=== PATIENT | female | born 1980 | race Asian ===

== ENCOUNTER 2022-11-25 12:03 | Outpatient (CLI) | payer OTHER ==
--- NOTE | 2022-11-25 16:17 | XRAY Report ---
PROCEDURE: Hip w/Pelvis 1V LT INDICATIONS: SPRAIN OF KNEE TECHNIQUE: AP pelvis with lateral view(s) of the left hip(s). COMPARISON: None. FINDINGS: Bones: No fractures or dislocations. No suspicious bony lesions. Soft tissues: No suspicious soft tissue calcifications or masses. IMPRESSION: No acute bony abnormality. If there remains a high clinical concern for fracture, consider cross-sect ional imaging now. If pain persists, consider repeat x-ray in 10-14 days or cross-sectional imaging. Reviewed by: Benjamín Luu MD on 11/25/2022 4:16 PM PDT Approved by: Benjamín Luu MD on 11/25/2022 4:16 PM PDT Station ID: [id number]
--- NOTE | 2022-11-25 16:17 | XRAY Report ---
PROCEDURE: Knee 3 View LT INDICATIONS: SPRAIN OF KNEE TECHNIQUE: 3 views of the left knee(s) were acquired. COMPARISON: None. FINDINGS: Bones: No fractures or dislocations. No suspicious bony lesions. Soft tissues: No knee joint effusion. No suspicious soft tissue calcifications or masses. IMPRESSION: No acute bony abnormality. If there remains a high clinical concern for fracture, consider cross-sect ional imaging now. If pain persists, consider repeat x-ray in 10-14 days or cross-sectional imaging. Reviewed by: Benjamín Luu MD on 11/25/2022 4:16 PM PDT Approved by: Benjamín Luu MD on 11/25/2022 4:16 PM PDT Station ID: [id number]
== END 2022-11-25 12:04 | disposition home or self-care (01) ==
LOC: DI.N 12:03
PROVIDERS: ATTEND Registered Nurse
DX: S83.8X2A Sprain of other specified parts of left knee, initial encounter (principal); S76.012A Strain of muscle, fascia and tendon of left hip, initial encounter

== ENCOUNTER 2023-09-16 17:34 | Outpatient (CLI) | payer OTHER ==
--- NOTE | 2023-09-17 09:01 | XRAY Report ---
PROCEDURE: Hand 1-2V RT INDICATIONS: CONTUSION OF RIGHT HAND TECHNIQUE: 3 views of the hand(s) acquired. COMPARISON: None. FINDINGS: Bones: No fractures or dislocations. No suspicious bony lesions. Soft tissues: No suspicious soft tissue calcifications or masses. IMPRESSION: No acute bony abnormality. Reviewed by: Benjamín Luu MD on 09/17/2023 9:00 AM PDT Approved by: Benjamín Luu MD on 09/17/2023 9:00 AM PDT Station ID: [id number]
== END 2023-09-16 17:35 | disposition home or self-care (01) ==
LOC: DI 17:34
PROVIDERS: ATTEND Nurse Practitioner
DX: S60.221A Contusion of right hand, initial encounter (principal)

== ENCOUNTER 2023-12-09 13:46 | Outpatient (CLI) | payer OTHER ==
[2023-12-09 18:20] LABS: BASOPHILS # (AUTO) 0.1 10^3/uL (0.0-0.1); BASOPHILS % (AUTO) 1.1 %; EOSINOPHILS # (AUTO) 0.2 10^3/uL (0.0-0.7); EOSINOPHILS % (AUTO) 3.7 %; HCT - HEMATOCRIT 37.9 % (37.0-47.0); LYMPHOCYTES # (AUTO) 1.8 10^3/uL (1.5-3.5); LYMPHOCYTES % (AUTO) 32.6 %; MEAN CORPUSCULAR HEMOGLOBIN 29.1 pg (27.0-31.0); MEAN CORPUSCULAR HGB CONC 31.7 g/dL (32.0-36.0); MEAN PLATELET VOLUME 10.1 fL (7.9-10.8); MONOCYTES # (AUTO) 0.4 10^3/uL (0.0-1.0); MONOCYTES % (AUTO) 7.2 %; NEUTROPHILS % (AUTO) 55.2 %; PLT - PLATELET COUNT 287 10^3/uL (130-450); RED BLOOD COUNT 4.12 10^6/uL (4.20-5.40); RED CELL DISTRIBUTION WIDTH 13.5 % (12.0-15.0); WHITE BLOOD COUNT 5.4 x10^3/uL (4.8-10.8)
[2023-12-09 18:26] LABS: THYROID STIMULATING HORMONE 1.73 uIU/mL (0.34-5.60)
== END 2023-12-09 23:59 | disposition home or self-care (01) ==
LOC: LAB 13:46
PROVIDERS: ATTEND Family Medicine
DX: N93.8 Other specified abnormal uterine and vaginal bleeding (principal)
CPT/HCPCS: 36415; 83001; 83002; 84443; 85025

== ENCOUNTER 2023-12-10 17:00 | Emergency (ER) | payer OTHER ==
[2023-12-10 17:50] VITALS: O2SAT 100
[2023-12-10 18:11] LABS: BASOPHILS # (AUTO) 0.1 10^3/uL (0.0-0.1); BASOPHILS % (AUTO) 1.3 %; EOSINOPHILS # (AUTO) 0.3 10^3/uL (0.0-0.7); EOSINOPHILS % (AUTO) 4.4 %; HCT - HEMATOCRIT 39.3 % (37.0-47.0); HGB - HEMOGLOBIN 12.6 g/dL (12.0-16.0); LYMPHOCYTES # (AUTO) 2.1 10^3/uL (1.5-3.5); LYMPHOCYTES % (AUTO) 29.9 %; MEAN CORPUSCULAR HGB CONC 32.1 g/dL (32.0-36.0); MEAN CORPUSCULAR VOLUME 90.6 fL (81.0-99.0); MONOCYTES # (AUTO) 0.4 10^3/uL (0.0-1.0); MONOCYTES % (AUTO) 5.1 %; NEUTROPHILS # (AUTO) 4.2 10^3/uL (1.5-6.6); PLT - PLATELET COUNT 286 10^3/uL (130-450); RED BLOOD COUNT 4.34 10^6/uL (4.20-5.40); RED CELL DISTRIBUTION WIDTH 13.5 % (12.0-15.0); WHITE BLOOD COUNT 7.1 x10^3/uL (4.8-10.8)
[2023-12-10 18:26] LABS: ALBUMIN 4.1 g/dL (3.2-5.5); BILIRUBIN,TOTAL 0.3 mg/dL (0.2-1.0); CALCIUM 9.4 mg/dL (8.5-10.3); CREATININE 0.8 mg/dL (0.6-1.3); TOTAL PROTEIN 6.2 g/dL (6.4-8.9)
[2023-12-10 19:28] LABS: BILIRUBIN,URINE NEGATIVE (NEGATIVE); GLUCOSE, URINE (UA) NEGATIVE (NEGATIVE); KETONES,URINE (UA) NEGATIVE (NEGATIVE); LEUKOCYTE ESTERASE, URINE NEGATIVE (NEGATIVE); NITRITE,URINE NEGATIVE (NEGATIVE); OCCULT BLOOD,URINE LARGE (NEGATIVE); PH,URINE 6.5 PH (5.0-7.5); PROTEIN,URINE NEGATIVE (NEGATIVE); UROBILINOGEN,URINE 0.2 (NORMAL) E.U./dL (NORMAL)
[2023-12-10 19:29] LABS: CLARITY,URINE HAZY (CLEAR); HCG UR QUAL NEGATIVE
[2023-12-10 19:35] LABS: BACTERIA,URINE None Seen /HPF (None Seen); SQUAMOUS EPITHELIAL CELL,UR FEW Squamous (<= Few); WBC,URINE 0-3 /HPF (0-5)
--- NOTE | 2023-12-10 20:20 | Ultrasound Report ---
PROCEDURE: Pelvic w/Transvag+Doppler Comp INDICATIONS: pelvic pain, vag bleeding TECHNIQUE: Real-time scanning was performed of the pelvic organs, with image documentation. Additional endovagi nal scanning was necessary due to incomplete visualization of the adnexal and endometrial structures by transabdominal scanning. Doppler interrogation was performed of the ovaries bilaterally. COMPARISON: None. FINDINGS: Uterus: Uterus is anteverted and normal in size at 7.5 x 4.1 x 4.6 cm. The myometrium is homogeneou s. The endometrium measures 5 mm in combined thickness. Multiple cystic structures seen within the cervix with the largest measuring 1.0 x 1.1 x 1.1 cm, which are favored to represent nabothian cysts. Ovaries: The right ovary measures 2.0 x 1.5 x 1.9 cm, with a calculated ovarian volume of 2.0 cc. T he left ovary measures 2.1 x 1.2 x 1.9 cm, with a calculated ovarian volume of 2.6 cc. Appropriate b lood flow to the ovaries with Doppler interrogation. Less than 12 follicles can be seen in each ova ry. No adnexal masses are seen. No cystic lesions measuring greater than 3 cm. Other: No pathologic free abdominal or pelvic fluid. IMPRESSION: No sonographic evidence of ovarian torsion. Normal sonographic appearance of the uterus and bilateral ovaries. Multiple cervical cystic areas likely represent nabothian cysts. Reviewed by: Frances Chacon MD, PhD on 12/10/2023 8:19 PM PDT Approved by: Frances Chacon MD, PhD on 12/10/2023 8:19 PM PDT Station ID: [id number]
--- NOTE | 2023-12-10 20:44 | ED Physician Documentation ---
History of Present Illness - Stated complaint Stated Complaint: - Chief complaint Chief Complaint: Abd Pain - History obtained from History obtained from: Patient - History of Present Illness Timing: How many days ago (15) Pain level max: 0 Pain level now: 0 - Additonal information Additional information: 43-year-old female presents to the emergency department stating that she has had vaginal bleeding for the past 15 days. She states she did have 1 night where she did not have any bleeding. She states the flow has been similar to prior menses. States her normal menses was about 5 days. Went to the walk-in clinic and is supposed to see gynecology but does not have an appointment till the . She is leaving the country to go to the [facility] and [facility] on December 23. Therefore she came here for evaluation instead. No lightheadedness, dizziness. No chest pain or shortness of breath. Not on anticoagulants. She is not on control or any hormone therapy at home. It does not take any medications. 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 - Present Medications Home Medications: Ambulatory Orders Medication Instructions Recorded Confirmed Norgestimate-Ethinyl Estradiol 1 each PO DAILY #56 tablet 12/10/23 [Sprintec 28 Day Tablet] - Allergies Allergies/Adverse Reactions: Allergies Allergy/AdvReac Type Severity Reaction Status Date / Time No Known Drug Allergies Allergy Verified 12/10/23 19:11 - Social History Does the pt smoke?: Yes Smoking Status: Never smoker Does the pt drink ETOH?: Yes Does the pt have substance abuse?: No PD ED PE NORMAL - Vitals Vital signs reviewed: Yes - General General: Alert and oriented X 3, No acute distress - HEENT HEENT: Moist mucous membranes - Neck Neck: Supple, no meningeal sign - Cardiac Cardiac: RRR, Strong equal pulses - Respiratory Respiratory: No respiratory distress, Clear bilaterally - Abdomen Abdomen: Soft, Non tender, Non distended - Derm Derm: Warm and dry - Neuro Neuro: Alert and oriented X 3 Results - Vitals Vitals: Vital Signs - 24 hr 12/10/23 12/10/23 17:39 21:07 Temperature 36.4 C L Heart Rate 67 76 Respiratory 18 13 Rate Blood Pressure 109/65 116/77 O2 Saturation 100 100 Oxygen O2 Source Room air - Labs Labs: Laboratory Tests 12/10/23 12/10/23 12/10/23 17:13 18:07 18:07 WBC 7.1 RBC 4.34 Hgb 12.6 Hct 39.3 MCV 90.6 MCH 29.0 MCHC 32.1 RDW 13.5 Plt Count 286 MPV 9.0 Neut # (Auto) 4.2 Lymph # (Auto) 2.1 Cochran # (Auto) 0.4 Eos # (Auto) 0.3 Baso # (Auto) 0.1 Absolute Nucleated RBC 0.00 Nucleated RBC % 0.0 Sodium 137 Potassium 4.0 Chloride 102 Carbon Dioxide 31 Anion Gap 4.0 L BUN 14 Creatinine 0.8 Estimated GFR (MDRD) 79 L Glucose 123 H Calcium 9.4 Total Bilirubin 0.3 AST 17 ALT 18 Alkaline Phosphatase 39 L Total Protein 6.2 L Albumin 4.1 Globulin 2.1 Albumin/Globulin Ratio 2.0 Lipase 26 Urine Color LIGHT YELLOW Urine Clarity HAZY Urine pH 6.5 Ur Specific [place] <=1.005 Urine Protein NEGATIVE Urine Glucose (UA) NEGATIVE Urine Ketones NEGATIVE Urine Occult Blood LARGE H Urine Nitrite NEGATIVE Urine Bilirubin NEGATIVE Urine Urobilinogen 0.2 (NORMAL) Ur Leukocyte Esterase NEGATIVE Urine RBC 11-25 H Urine WBC 0-3 Ur Squamous Epith Cells FEW Squamous Urine Bacteria None Seen Ur Microscopic Review INDICATED Urine Culture Comments NOT INDICATED Urine HCG, Qual NEGATIVE - Rads (name of study) pelvic US Relevant Findings:: Final report received, See rad report PD Medical Decision Making - ED course Complexity details: reviewed results, re-evaluated patient, considered differential, d/w patient, d/w family ED course: No acute abnormality on ultrasound, does have nabothian cysts. No significant lab abnormalities. No anemia. No tachycardia. Patient does have dysfunctional uterine bleeding. She states that she would like to try on hormonal control. We will place her on a Sprintec taper. We will have her continue the medication as long as she is out of the country and encouraged her to have close gynecology follow-up upon return. Patient is well-appearing, nontoxic. Afebrile. Patient counseled regarding signs and symptoms for which I believe and urgent re-evaluation would be necessary. Patient with good understanding of and agreement to plan and is comfortable going home at this time This document was made in part using voice recognition software. While efforts are made to proofread this document, sound alike and grammatical errors may occur. Departure - Departure Disposition: Home, Self Care Clinical Impression: Dysfunctional uterine bleeding Condition: Good Instructions: ED Bleed Irregular Vaginal Follow-Up: [facility] [Provider Group] Prescriptions: Norgestimate-Ethinyl Estradiol [Sprintec 28 Day Tablet] 1 each PO DAILY #56 tablet Comments: Your prescription was sent to [facility] in [place]. Please follow-up with your doctor for further care. You will start with 3 pills on day 1, then 2 pills on day 2, then 1 pill daily until you see gynecology. Your ultrasound and lab testing are normal today. Forms: PCP List Discharge Date/Time: 12/10/23 20:03
[2023-12-10 21:15] VITALS: BP 116/77
== END 2023-12-10 20:03 | disposition home or self-care (01) ==
LOC: ED 17:00
DX: N93.8 Other specified abnormal uterine and vaginal bleeding (principal)
CPT/HCPCS: 36415; 80053; 81001; 81003; 81025; 83690; 85025; 87086; 93975; 99284